=== PATIENT | male | born 1945 | race Caucasian/White ===

== ENCOUNTER 2016-05-23 08:45 | Emergency (ER) | payer OTHER ==
[~2016-05-23] VITALS: Ht 175.3 cm; Wt 114.2 kg
[~2016-05-23 08:45] MED LIST: ALLEGRA-D 241 TABLET PO; AMLODIPINE BESYL5 MG PO; APRESOLINE10 MG PO; ASPIR 8181 MG PO; ASPIRIN325 MG PO; CELEXA40 MG PO; CIPROFLOXACIN500 M1 PO; CLONIDINE HCL0.1 MG PO; COMPAZINE10 MG PO; COMPAZINE5 MG PO; DESYREL100 MG PO; DIOVAN320 MG PO; DIOVAN40 MG PO; DOXYCYCLINE HY100 MG PO; ECOTRIN325 MG PO; FENOFIBRATE145 M1 PO; FLONASE16 G1 BOTH NARES; HYDROCHLOROTHIA25 MG PO; K-DUR10 MEQ PO; KLONOPIN0.5 M1 PO; KLOR-CON M2020 MEQ PO; LEVAQUIN500 MG PO; LEXAPRO10 MG PO; LIPITOR40 MG PO; LOPRESSOR25 MG PO; LOPRESSOR50 MG PO; METOPROLOL TART50 MG PO; METRONIDAZOLE500 MG PO; NAPROSYN500 MG PO; NIACIN500 MG PO; NON-DROWSY ALLE10 MG PO; NORCO 5/3251 TABLET PO; NORVASC10 MG PO; NORVASC5 MG PO; TOPROL XL100 MG PO; TOPROL XL50 MG PO; TRAMADOL HCL50 MG PO; TRAZODONE HCL50 MG PO; TRICOR48 MG PO; TYLENOL EXTRA500 M1 PO; ULTRAM50 MG PO; VIAGRA100 MG PO; VICODIN 5-3001 EACH PO; VITAMIN B122500 MCG PO; XANAX1 MG PO; ZOCOR20 MG PO; ZOCOR5 MG PO; ZOLOFT100 MG PO; [UNRECOGNIZED DRUG - REMARK]
[2016-05-23 09:39] LABS: EOSINOPHIL COUNT 0.1 K/uL (0-0.3); HEMATOCRIT 44.2 % (38.0-50.0); IMMATURE GRANULOCYTE (%) 0.9 % (0.0-0.7); IMMATURE GRANULOCYTE COUNT 0.1 K/uL; LYMPHOCYTE COUNT 1.7 K/uL (1.0-2.8); MCH 30.8 PG (29.0-34.0); MCHC 36.9 G/DL (30.0-36.0); MCV 83.6 FL (86-99); MEAN PLAT.VOLUME 10.1 uM^3 (9.0-12.4); MONOCYTE (%) 8.3 % (3-12); MONOCYTE COUNT 0.9 K/uL (0-0.8); NEUTROPHIL (%) 73.4 % (45-76); NEUTROPHIL COUNT 7.6 K/uL (1.8-6.4); PLATELET COUNT 251 K/uL (156-360); RBC DIS.WIDTH-CV 13.3 % (11.8-14.6); RED BLOOD COUNT 5.29 M/uL (4.00-5.50); WHITE BLOOD COUNT 10.4 K/uL (4.1-10.2)
[2016-05-23 09:40] LABS: INTER. NORMALIZED RATIO 1.1; PROTHROMBIN TIME 11.4 (9.2-11.2); PTT 20.3 (25-32)
[2016-05-23 09:50] LABS: ANION GAP 13 MEQ/L (2-14); CHLORIDE 93 mEq/L (99-109); GFR ESTIMATE (CALCULATED) > 59 mL/min/; GLUCOSE 120 mg/dL (70-99); POTASSIUM 3.4 mEq/L (3.7-5.4); SODIUM 129 mEq/L (136-147)
[2016-05-23 09:54] LABS: TROP-I INTERPRETATION NEGATIVE; TROPONIN-I < 0.01 ng/mL (0.0-0.30)
[2016-05-23 09:58] LABS: UREA NITROGEN (BUN) 13 mg/dL (9-23)
[2016-05-23] MEDS ORDERED: CATAPRES0.1 MG PO (11:52)
[2016-05-23] MEDS ORDERED: PREDNISONE50 MG PO (11:52)
[2016-05-23 12:06] VITALS: BP 177/62
== END 2016-05-23 12:07 | disposition home or self-care (01) ==
LOC: EME → EDBD 08:45 → EME 12:07
PROVIDERS: Emergency Medicine
DX: J44.1 Chronic obstructive pulmonary disease with (acute) exacerbation (principal); I10 Essential (primary) hypertension; E78.5 Hyperlipidemia, unspecified; Z95.5 Presence of coronary angioplasty implant and graft; Z87.891 Personal history of nicotine dependence; Z79.82 Long term (current) use of aspirin
CPT/HCPCS: 71010; 80048; 83880; 84484; 85025; 85610; 85730; 93005; 94640; 99281; 99284

== ENCOUNTER 2016-08-15 16:10 | Observation (INO) | payer OTHER ==
[~2016-08-15] VITALS: Ht 177.8 cm; Wt 113.4 kg
[~2016-08-15 16:10] MED LIST changes: +CATAPRES0.1 MG PO; +PREDNISONE50 MG PO
[2016-08-15 16:45] LABS: HEMATOCRIT 42.7 % (38.0-50.0); MCH 29.8 PG (29.0-34.0); MCHC 34.4 G/DL (30.0-36.0); MCV 86.4 FL (86-99); MEAN PLAT.VOLUME 9.4 uM^3 (9.0-12.4); PLATELET COUNT 250 K/uL (156-360); RBC DIS.WIDTH-CV 13.8 % (11.8-14.6); RBC DIS.WIDTH-SD 43.8 % (39-53); RED BLOOD COUNT 4.94 M/uL (4.00-5.50); WHITE BLOOD COUNT 7.7 K/uL (4.1-10.2)
[2016-08-15 16:56] LABS: CHLORIDE 101 mEq/L (99-109); POTASSIUM 3.9 mEq/L (3.7-5.4); SODIUM 135 mEq/L (136-147)
[2016-08-15 16:58] LABS: GLUCOSE 108 mg/dL (70-99)
[2016-08-15 16:59] LABS: ANION GAP 11 MEQ/L (2-14)
[2016-08-15 17:02] LABS: GFR ESTIMATE (CALCULATED) > 59 mL/min/
[2016-08-15 17:03] LABS: UREA NITROGEN (BUN) 13 mg/dL (9-23)
[2016-08-15 17:09] LABS: TROP-I INTERPRETATION NEGATIVE; TROPONIN-I < 0.01 ng/mL (0.0-0.30)
[2016-08-15] MEDS ORDERED: HYDROCHLOROTHIA25 MG PO (18:22)
[2016-08-15] MEDS ORDERED: CLONAZEPAM0.5 MG PO (18:23)
[2016-08-15] MEDS ORDERED: DICYCLOMINE HCL20 MG PO (18:24)
[2016-08-15] MEDS ORDERED: OMEPRAZOLE20 MG PO (18:24)
[2016-08-15] MEDS ORDERED: VIAGRA100 MG PO (18:25)
[2016-08-15 19:46] VITALS: BP 172/77
[2016-08-15 23:53] LABS: TROP-I INTERPRETATION NEGATIVE; TROPONIN-I < 0.01 ng/mL (0.0-0.30)
[2016-08-16] VITALS (8 sets, daily range): BP systolic 137–193; BP diastolic 65–100
[2016-08-16 05:38] LABS: MCH 29.5 PG (29.0-34.0); MCHC 33.8 G/DL (30.0-36.0); MCV 87.2 FL (86-99); MEAN PLAT.VOLUME 9.8 uM^3 (9.0-12.4); PLATELET COUNT 215 K/uL (156-360); RBC DIS.WIDTH-CV 13.8 % (11.8-14.6); RBC DIS.WIDTH-SD 44.1 % (39-53); RED BLOOD COUNT 4.47 M/uL (4.00-5.50); WHITE BLOOD COUNT 7.5 K/uL (4.1-10.2)
[2016-08-16 05:53] LABS: TROP-I INTERPRETATION NEGATIVE; TROPONIN-I 0.01 ng/mL (0.0-0.30)
[2016-08-16 06:04] LABS: ALKALINE PHOSPHATASE 50 IU/L (3-129); ANION GAP 8 MEQ/L (2-14); CHLORIDE 100 MEQ/L (99-109); GFR ESTIMATE (CALCULATED) > 59 mL/min/; GLUCOSE 91 mg/dL (70-99); POTASSIUM 3.2 MEQ/L (3.7-5.4); SAMPLE HEMOLYSIS CHECK 0; SAMPLE ICTERIC CHECK 0; SAMPLE LIPEMIA CHECK 0; SODIUM 137 MEQ/L (136-147); TOTAL BILIRUBIN 0.9 MG/DL (0.0-1.0); UREA NITROGEN (BUN) 15 mg/dL (9-23)
[2016-08-16 11:50] LABS: D-DIMER ELISA 0.24 mg/L FEU (< 0.57)
[2016-08-16] MEDS ORDERED: CLONIDINE1 EAC1 TD (14:10)
[2016-08-16] MEDS ORDERED: APRESOLINE50 MG PO (14:10)
[2016-08-16] MEDS ORDERED: K-DUR20 MEQ PO (14:12)
[2016-08-16] MEDS ORDERED: TRIAMTERENE-HC1 EACH PO (14:20)
[2016-08-17 04:55] VITALS: BP 128/61
[2016-08-17 06:40] LABS: ANION GAP 8 MEQ/L (2-14); CHLORIDE 99 MEQ/L (99-109); GFR ESTIMATE (CALCULATED) 53 mL/min/; GLUCOSE 100 mg/dL (70-99); SAMPLE HEMOLYSIS CHECK 0; SAMPLE ICTERIC CHECK 0; SAMPLE LIPEMIA CHECK 0; SODIUM 134 MEQ/L (136-147); UREA NITROGEN (BUN) 20 mg/dL (9-23)
[2016-08-17 06:42] LABS: POTASSIUM 4.1 MEQ/L (3.7-5.4)
[2016-08-17 07:15] VITALS: BP 142/64
== END 2016-08-17 11:28 | disposition home or self-care (01) ==
LOC: EME 16:10 → 5WEST 18:07 → EDOF 18:07 → 5WEST 19:24
PROVIDERS: Internal Medicine; Nurse Practitioner Adult Health
DX: R07.89 Other chest pain (principal); E87.6 Hypokalemia; I25.10 Atherosclerotic heart disease of native coronary artery without angina pectoris; I10 Essential (primary) hypertension; E78.00 Pure hypercholesterolemia, unspecified; J44.9 Chronic obstructive pulmonary disease, unspecified; G47.30 Sleep apnea, unspecified; K21.9 Gastro-esophageal reflux disease without esophagitis; F32.9 Major depressive disorder, single episode, unspecified; E66.9 Obesity, unspecified; Z68.35 Body mass index [BMI] 35.0-35.9, adult; I51.7 Cardiomegaly
CPT/HCPCS: 71020; 80048; 80053; 84484; 85027; 85379; 93005; 94660; 99281; 99285; G0378; J1644

== ENCOUNTER 2016-08-20 00:17 | Observation (INO) | payer OTHER ==
[~2016-08-20] VITALS: Ht 177.8 cm; Wt 119.5 kg
[~2016-08-20 00:17] MED LIST changes: +APRESOLINE50 MG PO; +CLONAZEPAM0.5 MG PO; +CLONIDINE1 EAC1 TD; +DICYCLOMINE HCL20 MG PO; +K-DUR20 MEQ PO; +OMEPRAZOLE20 MG PO; +TRIAMTERENE-HC1 EACH PO
[2016-08-20 00:56] LABS: HEMATOCRIT 40.7 % (38.0-50.0); MCH 30.1 PG (29.0-34.0); MCHC 34.6 G/DL (30.0-36.0); MCV 86.8 FL (86-99); MEAN PLAT.VOLUME 9.4 uM^3 (9.0-12.4); PLATELET COUNT 231 K/uL (156-360); RBC DIS.WIDTH-CV 13.6 % (11.8-14.6); RBC DIS.WIDTH-SD 43.1 % (39-53); RED BLOOD COUNT 4.69 M/uL (4.00-5.50)
[2016-08-20 01:08] LABS: CHLORIDE 100 mEq/L (99-109); POTASSIUM 3.6 mEq/L (3.7-5.4); SODIUM 130 mEq/L (136-147)
[2016-08-20 01:10] LABS: GLUCOSE 126 mg/dL (70-99)
[2016-08-20 01:11] LABS: ANION GAP 7 MEQ/L (2-14)
[2016-08-20 01:14] LABS: GFR ESTIMATE (CALCULATED) > 59 mL/min/
[2016-08-20 01:15] LABS: UREA NITROGEN (BUN) 20 mg/dL (9-23)
[2016-08-20 01:23] LABS: TROP-I INTERPRETATION NEGATIVE; TROPONIN-I < 0.01 ng/mL (0.0-0.30)
[2016-08-20 04:40] LABS: TOTAL BILIRUBIN 0.6 mg/dL (0.0-1.0)
[2016-08-20 04:41] LABS: ALKALINE PHOSPHATASE 92 IU/L (3-129)
[2016-08-20 04:44] LABS: DIRECT BILIRUBIN 0.2 mg/dL (0.0-0.3)
[2016-08-20 04:45] LABS: LIPASE 49 U/L (1.0-51.0)
[2016-08-20 05:02] VITALS: BP 159/72
[2016-08-20 07:30] VITALS: BP 143/66
[2016-08-20 09:10] LABS: TROP-I INTERPRETATION NEGATIVE; TROPONIN-I < 0.01 ng/mL (0.0-0.30)
[2016-08-20 11:32] VITALS: BP 149/65
[2016-08-20 13:09] LABS: TROP-I INTERPRETATION NEGATIVE; TROPONIN-I < 0.01 ng/mL (0.0-0.30)
[2016-08-20 16:58] VITALS: BP 166/71
[2016-08-20 19:42] VITALS: BP 171/75
[2016-08-21] VITALS: BP 125/60
[2016-08-21 07:15] VITALS: BP 132/68
[2016-08-21] MEDS ORDERED: HYDRALAZINE HC100 MG PO (10:28)
[2016-08-21] MEDS ORDERED: METOPROLOL TART50 MG PO (10:28)
[2016-08-21] MEDS ORDERED: CLONIDINE1 EAC2 TD (10:43)
== END 2016-08-21 11:35 | disposition home or self-care (01) ==
LOC: EME 00:17 → 5WEST 03:54 → EDOF 03:54 → 5WEST 04:49
PROVIDERS: Hospitalist
DX: R07.89 Other chest pain (principal); I16.0 Hypertensive urgency; I10 Essential (primary) hypertension; I35.0 Nonrheumatic aortic (valve) stenosis; E87.6 Hypokalemia; E87.1 Hypo-osmolality and hyponatremia; I25.10 Atherosclerotic heart disease of native coronary artery without angina pectoris; E78.5 Hyperlipidemia, unspecified; J44.9 Chronic obstructive pulmonary disease, unspecified; J45.909 Unspecified asthma, uncomplicated; G43.909 Migraine, unspecified, not intractable, without status migrainosus; K21.9 Gastro-esophageal reflux disease without esophagitis; Z87.891 Personal history of nicotine dependence; Z95.5 Presence of coronary angioplasty implant and graft; G47.30 Sleep apnea, unspecified; F41.9 Anxiety disorder, unspecified; F32.9 Major depressive disorder, single episode, unspecified; E66.9 Obesity, unspecified; Z68.37 Body mass index [BMI] 37.0-37.9, adult
CPT/HCPCS: 71020; 76705; 80048; 80076; 81003; 82436; 83690; 83930; 83935; 84133; 84300; 84443; 84484; 85027; 93005; 93306; 99281; 99285; G0378; J1644

== ENCOUNTER 2016-09-03 11:40 | Emergency (ER) | payer OTHER ==
[~2016-09-03] VITALS: Ht 177.8 cm; Wt 120.7 kg
[~2016-09-03 11:40] MED LIST changes: +CLONIDINE1 EAC2 TD; +HYDRALAZINE HC100 MG PO
[2016-09-03 12:21] LABS: EOSINOPHIL (%) 1.2 % (0-5); EOSINOPHIL COUNT 0.1 K/uL (0-0.3); HEMATOCRIT 37.5 % (38.0-50.0); IMMATURE GRANULOCYTE (%) 0.9 % (0.0-0.7); IMMATURE GRANULOCYTE COUNT 0.1 K/uL; INSTRUMENT ABS NEUTROPHIL CT 6.1 K/uL; LYMPHOCYTE COUNT 0.8 K/uL (1.0-2.8); MCH 30.4 PG (29.0-34.0); MCHC 34.7 G/DL (30.0-36.0); MCV 87.6 FL (86-99); MEAN PLAT.VOLUME 9.1 uM^3 (9.0-12.4); MONOCYTE (%) 7.8 % (3-12); MONOCYTE COUNT 0.6 K/uL (0-0.8); NEUTROPHIL (%) 79.5 % (45-76); NEUTROPHIL COUNT 6.1 K/uL (1.8-6.4); PLATELET COUNT 206 K/uL (156-360); RBC DIS.WIDTH-CV 13.5 % (11.8-14.6); RBC DIS.WIDTH-SD 43.3 % (39-53); RED BLOOD COUNT 4.28 M/uL (4.00-5.50); WHITE BLOOD COUNT 7.6 K/uL (4.1-10.2)
[2016-09-03 12:31] LABS: CHLORIDE 96 mEq/L (99-109); POTASSIUM 4.1 mEq/L (3.7-5.4); SODIUM 127 mEq/L (136-147)
[2016-09-03 12:33] LABS: GLUCOSE 98 mg/dL (70-99)
[2016-09-03 12:35] LABS: ANION GAP 11 MEQ/L (2-14)
[2016-09-03 12:37] LABS: GFR ESTIMATE (CALCULATED) 43 mL/min/
[2016-09-03 12:38] LABS: UREA NITROGEN (BUN) 25 mg/dL (9-23)
[2016-09-03 12:42] LABS: TROP-I INTERPRETATION NEGATIVE; TROPONIN-I < 0.01 ng/mL (0.0-0.30)
[2016-09-03] MEDS ORDERED: CATAPRES-TTS 31 EACH TD (13:57)
[2016-09-03 14:36] VITALS: BP 159/75
== END 2016-09-03 14:37 | disposition home or self-care (01) ==
LOC: EME 11:40
PROVIDERS: Physician Assistant
DX: R06.02 Shortness of breath (principal); Z76.0 Encounter for issue of repeat prescription; J44.9 Chronic obstructive pulmonary disease, unspecified; E78.5 Hyperlipidemia, unspecified; I10 Essential (primary) hypertension; K21.9 Gastro-esophageal reflux disease without esophagitis; Z87.891 Personal history of nicotine dependence; Z79.82 Long term (current) use of aspirin; Z98.61 Coronary angioplasty status
CPT/HCPCS: 71010; 80048; 84484; 85025; 93005; 99281; 99284

== ENCOUNTER 2016-09-06 15:51 | Inpatient (IN) | payer OTHER ==
[~2016-09-06] VITALS: Ht 177.8 cm; Wt 119.3 kg
[~2016-09-06 15:51] MED LIST changes: +CATAPRES-TTS 31 EACH TD
[2016-09-06 16:38] LABS: HEMATOCRIT 38.5 % (38.0-50.0); MCH 29.6 PG (29.0-34.0); MCV 87.1 FL (86-99); MEAN PLAT.VOLUME 9.5 uM^3 (9.0-12.4); PLATELET COUNT 217 K/uL (156-360); RBC DIS.WIDTH-CV 13.3 % (11.8-14.6); RBC DIS.WIDTH-SD 42.8 % (39-53); RED BLOOD COUNT 4.42 M/uL (4.00-5.50); WHITE BLOOD COUNT 9.5 K/uL (4.1-10.2)
[2016-09-06 16:58] LABS: CHLORIDE 97 mEq/L (99-109); POTASSIUM 4.7 mEq/L (3.7-5.4); SODIUM 126 mEq/L (136-147)
[2016-09-06 16:59] LABS: GLUCOSE 94 mg/dL (70-99)
[2016-09-06 17:01] LABS: ANION GAP 12 MEQ/L (2-14)
[2016-09-06 17:03] LABS: GFR ESTIMATE (CALCULATED) 37 mL/min/
[2016-09-06 17:04] LABS: UREA NITROGEN (BUN) 23 mg/dL (9-23)
[2016-09-06 17:06] LABS: TROP-I INTERPRETATION NEGATIVE; TROPONIN-I < 0.01 ng/mL (0.0-0.30)
[2016-09-06 17:54] LABS: INTER. NORMALIZED RATIO 1.1; PROTHROMBIN TIME 10.9 (9.2-11.2); PTT 29.4 (25-32)
[2016-09-06] MEDS ORDERED: CLONIDINE1 EAC1 TD (19:19)
[2016-09-06] MEDS ORDERED: TRIAMTERENE-HC1 EACH PO (19:20)
[2016-09-06] MEDS ORDERED: APRESOLINE50 MG PO (19:20)
[2016-09-06 20:20] LABS: MAGNESIUM 1.8 mg/dL (1.3-2.7)
[2016-09-06 20:24] LABS: TOTAL BILIRUBIN 0.9 mg/dL (0.0-1.0)
[2016-09-06 20:25] LABS: ALKALINE PHOSPHATASE 62 IU/L (3-129)
[2016-09-06 20:27] LABS: DIRECT BILIRUBIN 0.3 mg/dL (0.0-0.3)
[2016-09-06 20:28] LABS: URIC ACID 6.1 mg/dL (3.1-9.2)
[2016-09-06 20:29] LABS: LIPASE 40 U/L (1.0-51.0)
[2016-09-06 21:34] VITALS: BP 145/65
[2016-09-06 22:00] LABS: ADD MIUA? NO; BILIRUBIN NEGATIVE; BLOOD NEGATIVE; COLOR YELLOW ((YELLOW)); GLUCOSE (STRIP) NEGATIVE; KETONES NEGATIVE; LEUKOCYTES NEGATIVE; NITRITE NEGATIVE; PROTEIN (STRIP) NEGATIVE; UROBILINOGEN 0.2 MG/DL (0.2-1.0)
[2016-09-07 03:00] VITALS: BP 104/48
[2016-09-07 04:32] LABS: HEMATOCRIT 36.4 % (38.0-50.0); MCH 29.7 PG (29.0-34.0); MCHC 34.1 G/DL (30.0-36.0); MCV 87.3 FL (86-99); MEAN PLAT.VOLUME 9.2 uM^3 (9.0-12.4); PLATELET COUNT 181 K/uL (156-360); RBC DIS.WIDTH-CV 13.2 % (11.8-14.6); RBC DIS.WIDTH-SD 42.6 % (39-53); RED BLOOD COUNT 4.17 M/uL (4.00-5.50); WHITE BLOOD COUNT 8.3 K/uL (4.1-10.2)
[2016-09-07 04:43] LABS: CHLORIDE 100 mEq/L (99-109); POTASSIUM 4.9 mEq/L (3.7-5.4); SODIUM 126 mEq/L (136-147)
[2016-09-07 04:45] LABS: GLUCOSE 95 mg/dL (70-99)
[2016-09-07 04:46] LABS: ANION GAP 10 MEQ/L (2-14)
[2016-09-07 04:48] LABS: GFR ESTIMATE (CALCULATED) 37 mL/min/
[2016-09-07 04:49] LABS: UREA NITROGEN (BUN) 26 mg/dL (9-23)
[2016-09-07 04:53] LABS: TROP-I INTERPRETATION NEGATIVE; TROPONIN-I < 0.01 ng/mL (0.0-0.30)
[2016-09-07 08:01] VITALS: BP 184/72
[2016-09-07 09:41] LABS: CHLORIDE 98 mEq/L (99-109); POTASSIUM 5.5 mEq/L (3.7-5.4); SODIUM 128 mEq/L (136-147)
[2016-09-07 09:43] LABS: GLUCOSE 102 mg/dL (70-99)
[2016-09-07 09:44] LABS: ANION GAP 11 MEQ/L (2-14)
[2016-09-07 09:47] LABS: GFR ESTIMATE (CALCULATED) 43 mL/min/
[2016-09-07 09:48] LABS: UREA NITROGEN (BUN) 25 mg/dL (9-23)
[2016-09-07 11:07] LABS: TROP-I INTERPRETATION NEGATIVE; TROPONIN-I < 0.01 ng/mL (0.0-0.30)
[2016-09-07 11:17] VITALS: BP 123/73
[2016-09-07 16:04] VITALS: BP 116/56
[2016-09-07 17:07] LABS: CHLORIDE 101 mEq/L (99-109); SODIUM 129 mEq/L (136-147)
[2016-09-07 17:09] LABS: GLUCOSE 100 mg/dL (70-99)
[2016-09-07 17:10] LABS: ANION GAP 12 MEQ/L (2-14)
[2016-09-07 17:13] LABS: GFR ESTIMATE (CALCULATED) 46 mL/min/
[2016-09-07 17:14] LABS: UREA NITROGEN (BUN) 22 mg/dL (9-23)
[2016-09-07 19:56] VITALS: BP 171/70
[2016-09-07 21:17] LABS: UR CREATININE CONCENTRATION 35.6 MG/DL
[2016-09-07 23:49] VITALS: BP 135/63
[2016-09-08 03:41] VITALS: BP 144/63
[2016-09-08 07:20] LABS: CARBON DIOXIDE (BICARBONATE) 24.6 MEQ/L (20-31)
[2016-09-08 07:53] VITALS: BP 154/66
[2016-09-08 08:50] LABS: ANION GAP 5 MEQ/L (2-14); CHLORIDE 103 MEQ/L (99-109); GFR ESTIMATE (CALCULATED) 58 mL/min/; GLUCOSE 97 mg/dL (70-99); SAMPLE HEMOLYSIS CHECK 0; SAMPLE ICTERIC CHECK 0; SAMPLE LIPEMIA CHECK 0; SODIUM 130 MEQ/L (136-147); UREA NITROGEN (BUN) 18 mg/dL (9-23); URIC ACID 4.1 mg/dL (3.1-9.2)
[2016-09-08 09:05] LABS: POTASSIUM 6.1 MEQ/L (3.7-5.4)
[2016-09-08 16:04] VITALS: BP 176/76
[2016-09-08 17:14] LABS: CHLORIDE 104 mEq/L (99-109); SODIUM 132 mEq/L (136-147)
[2016-09-08 17:15] LABS: GLUCOSE 110 mg/dL (70-99)
[2016-09-08 17:17] LABS: ANION GAP 11 MEQ/L (2-14)
[2016-09-08 17:19] LABS: GFR ESTIMATE (CALCULATED) 58 mL/min/; POTASSIUM 4.5 mEq/L (3.7-5.4)
[2016-09-08 17:20] LABS: UREA NITROGEN (BUN) 17 mg/dL (9-23)
[2016-09-08 20:26] VITALS: BP 176/82
[2016-09-09 00:11] VITALS: BP 128/60
[2016-09-09 04:43] VITALS: BP 141/58
[2016-09-09 07:17] VITALS: BP 188/79
[2016-09-09 07:42] LABS: EOSINOPHIL (%) 1.5 % (0-5); EOSINOPHIL COUNT 0.1 K/uL (0-0.3); HEMATOCRIT 35.3 % (38.0-50.0); IMMATURE GRANULOCYTE COUNT 0.1 K/uL; INSTRUMENT ABS NEUTROPHIL CT 4.2 K/uL; LYMPHOCYTE COUNT 1.2 K/uL (1.0-2.8); MCH 29.9 PG (29.0-34.0); MCHC 33.4 G/DL (30.0-36.0); MCV 89.6 FL (86-99); MEAN PLAT.VOLUME 9.3 uM^3 (9.0-12.4); MONOCYTE (%) 8.2 % (3-12); MONOCYTE COUNT 0.5 K/uL (0-0.8); NEUTROPHIL (%) 69.1 % (45-76); NEUTROPHIL COUNT 4.2 K/uL (1.8-6.4); PLATELET COUNT 186 K/uL (156-360); RBC DIS.WIDTH-CV 13.4 % (11.8-14.6); RBC DIS.WIDTH-SD 44.4 % (39-53); RED BLOOD COUNT 3.94 M/uL (4.00-5.50)
[2016-09-09 08:40] LABS: ANION GAP 9 MEQ/L (2-14); CHLORIDE 103 MEQ/L (99-109); GFR ESTIMATE (CALCULATED) 58 mL/min/; GLUCOSE 90 mg/dL (70-99); POTASSIUM 4.3 MEQ/L (3.7-5.4); SAMPLE HEMOLYSIS CHECK 0; SAMPLE ICTERIC CHECK 0; SAMPLE LIPEMIA CHECK 0; SODIUM 133 MEQ/L (136-147); UREA NITROGEN (BUN) 14 mg/dL (9-23)
[2016-09-09 11:15] VITALS: BP 198/81
[2016-09-09] MEDS ORDERED: TAMSULOSIN HCL0.4 MG PO (15:57)
[2016-09-09 16:00] VITALS: BP 122/60
[2016-09-09] MEDS ORDERED: ADVAIR HFA120 INHALA IH (16:06)
[2016-09-09] MEDS ORDERED: VENTOLIN HFA18 GM IH (16:07)
== END 2016-09-09 17:24 | disposition home or self-care (01) | DRG 683 ==
LOC: EME 15:51 → EDOF 19:52 → 5WEST 19:52 → 3EAST 09-07 12:51 → 5WEST 09-07 12:51 → 3EAST 09-07 17:07
PROVIDERS: Emergency Medicine; Hospitalist; Internal Medicine; Internal Medicine Nephrology; Physician Assistant
DX: N17.9 Acute kidney failure, unspecified (principal); R07.9 Chest pain, unspecified; E78.5 Hyperlipidemia, unspecified; J44.9 Chronic obstructive pulmonary disease, unspecified; E66.9 Obesity, unspecified; Z68.37 Body mass index [BMI] 37.0-37.9, adult; K21.9 Gastro-esophageal reflux disease without esophagitis; F32.9 Major depressive disorder, single episode, unspecified; I25.10 Atherosclerotic heart disease of native coronary artery without angina pectoris; Z95.5 Presence of coronary angioplasty implant and graft; E87.1 Hypo-osmolality and hyponatremia; G47.33 Obstructive sleep apnea (adult) (pediatric); R16.0 Hepatomegaly, not elsewhere classified; N28.89 Other specified disorders of kidney and ureter; J44.1 Chronic obstructive pulmonary disease with (acute) exacerbation; K59.00 Constipation, unspecified; E87.5 Hyperkalemia; E87.2 Acidosis; Z87.891 Personal history of nicotine dependence; R15.9 Full incontinence of feces; R33.9 Retention of urine, unspecified; N18.2 Chronic kidney disease, stage 2 (mild); I47.1 Supraventricular tachycardia; H40.9 Unspecified glaucoma; E87.8 Other disorders of electrolyte and fluid balance, not elsewhere classified; I13.10 Hypertensive heart and chronic kidney disease without heart failure, with stage 1 through stage 4 chronic kidney disease, or unspecified chronic kidney disease; E04.9 Nontoxic goiter, unspecified; I70.1 Atherosclerosis of renal artery; N40.0 Benign prostatic hyperplasia without lower urinary tract symptoms
CPT/HCPCS: 71020; 71250; 74176; 76770; 78452; 80048; 80048 91; 80069; 80076; 81003; 82436; 82570; 82803; 83690; 83735; 83880; 83930; 83935; 84133; 84156; 84300; 84443; 84484; 84550; 85025; 85027; 85379; 85610; 85730; 93005; 93017; 93975; 94640; 94640 76; 94660; 94799; 99202; 99281; 99285; A9500; G0378; J1644; J1815; J2270; J2785; J7030

== ENCOUNTER 2016-09-10 20:18 | Inpatient (IN) | payer OTHER ==
[~2016-09-10] VITALS: Ht 177.8 cm; Wt 117.8 kg
[~2016-09-10 20:18] MED LIST changes: +ADVAIR HFA120 INHALA IH; +TAMSULOSIN HCL0.4 MG PO; +VENTOLIN HFA18 GM IH
[2016-09-10 22:44] LABS: CHLORIDE 102 mEq/L (99-109); POTASSIUM 3.7 mEq/L (3.7-5.4); SODIUM 130 mEq/L (136-147)
[2016-09-10 22:46] LABS: GLUCOSE 95 mg/dL (70-99)
[2016-09-10 22:47] LABS: ANION GAP 11 MEQ/L (2-14)
[2016-09-10 22:48] LABS: TOTAL BILIRUBIN 0.9 mg/dL (0.0-1.0)
[2016-09-10 22:49] LABS: ALKALINE PHOSPHATASE 59 IU/L (3-129)
[2016-09-10 22:50] LABS: GFR ESTIMATE (CALCULATED) > 59 mL/min/
[2016-09-10 22:51] LABS: UREA NITROGEN (BUN) 11 mg/dL (9-23)
[2016-09-10 22:54] LABS: TROP-I INTERPRETATION NEGATIVE; TROPONIN-I < 0.01 ng/mL (0.0-0.30)
[2016-09-10 23:32] LABS: HEMATOCRIT 36.5 % (38.0-50.0); MCH 29.9 PG (29.0-34.0); MCHC 34.5 G/DL (30.0-36.0); MCV 86.7 FL (86-99); MEAN PLAT.VOLUME 9.2 uM^3 (9.0-12.4); PLATELET COUNT 193 K/uL (156-360); RBC DIS.WIDTH-CV 12.8 % (11.8-14.6); RBC DIS.WIDTH-SD 40.7 % (39-53); RED BLOOD COUNT 4.21 M/uL (4.00-5.50)
[2016-09-10 23:35] LABS: WHITE BLOOD COUNT 8.9 K/uL (4.1-10.2)
[2016-09-11] VITALS (9 sets, daily range): BP systolic 148–174; BP diastolic 52–68
[2016-09-11 02:47] LABS: INTER. NORMALIZED RATIO 1.1; PROTHROMBIN TIME 11.2 (9.2-11.2); PTT 27.8 (25-32)
[2016-09-11 05:58] LABS: HEMATOCRIT 32.4 % (38.0-50.0); MCH 29.8 PG (29.0-34.0); MCV 87.8 FL (86-99); MEAN PLAT.VOLUME 9.3 uM^3 (9.0-12.4); PLATELET COUNT 185 K/uL (156-360); RBC DIS.WIDTH-CV 12.8 % (11.8-14.6); RBC DIS.WIDTH-SD 40.9 % (39-53); RED BLOOD COUNT 3.69 M/uL (4.00-5.50); WHITE BLOOD COUNT 8.3 K/uL (4.1-10.2)
[2016-09-11 06:23] LABS: TROP-I INTERPRETATION NEGATIVE; TROPONIN-I < 0.01 ng/mL (0.0-0.30)
[2016-09-11 07:16] LABS: ANION GAP 10 MEQ/L (2-14); CHLORIDE 100 MEQ/L (99-109); GFR ESTIMATE (CALCULATED) 58 mL/min/; GLUCOSE 97 mg/dL (70-99); POTASSIUM 3.3 MEQ/L (3.7-5.4); SAMPLE HEMOLYSIS CHECK 0; SAMPLE ICTERIC CHECK 0; SAMPLE LIPEMIA CHECK 0; SODIUM 132 MEQ/L (136-147); UREA NITROGEN (BUN) 13 mg/dL (9-23)
[2016-09-11 13:26] LABS: TROP-I INTERPRETATION NEGATIVE; TROPONIN-I < 0.01 ng/mL (0.0-0.30)
[2016-09-11 18:19] LABS: INTER. NORMALIZED RATIO 1.1; PROTHROMBIN TIME 11.3 (9.2-11.2)
[2016-09-12 01:04] LABS: INTER. NORMALIZED RATIO 1.1; PROTHROMBIN TIME 11.2 (9.2-11.2); PTT 67.5 (25-32)
[2016-09-12 04:55] VITALS: BP 156/72
[2016-09-12 07:45] LABS: HEMATOCRIT 35.6 % (38.0-50.0); MCHC 33.7 G/DL (30.0-36.0); MEAN PLAT.VOLUME 9.2 uM^3 (9.0-12.4); PLATELET COUNT 186 K/uL (156-360); RBC DIS.WIDTH-CV 13.2 % (11.8-14.6); WHITE BLOOD COUNT 6.1 K/uL (4.1-10.2)
[2016-09-12 08:00] VITALS: BP 196/81
[2016-09-12 08:22] LABS: ANION GAP 7 MEQ/L (2-14); CHLORIDE 105 MEQ/L (99-109); GFR ESTIMATE (CALCULATED) 58 mL/min/; GLUCOSE 98 mg/dL (70-99); MAGNESIUM 1.9 mg/dl (1.3-2.7); SAMPLE HEMOLYSIS CHECK 0; SAMPLE ICTERIC CHECK 0; SAMPLE LIPEMIA CHECK 0; SODIUM 135 MEQ/L (136-147); UREA NITROGEN (BUN) 10 mg/dL (9-23)
[2016-09-12 08:23] LABS: POTASSIUM 4.5 MEQ/L (3.7-5.4)
[2016-09-12 10:07] VITALS: BP 187/80
[2016-09-12 17:57] VITALS: BP 175/72
[2016-09-12 19:10] VITALS: BP 141/63
[2016-09-13 00:11] VITALS: BP 126/57
[2016-09-13 04:53] VITALS: BP 160/66
[2016-09-13 05:22] LABS: HEMATOCRIT 33.2 % (38.0-50.0); MCHC 34.3 G/DL (30.0-36.0); MCV 90.2 FL (86-99); MEAN PLAT.VOLUME 9.1 uM^3 (9.0-12.4); PLATELET COUNT 184 K/uL (156-360); RBC DIS.WIDTH-CV 13.3 % (11.8-14.6); RBC DIS.WIDTH-SD 43.9 % (39-53); RED BLOOD COUNT 3.68 M/uL (4.00-5.50); WHITE BLOOD COUNT 7.9 K/uL (4.1-10.2)
[2016-09-13 09:00] VITALS: BP 137/58
[2016-09-13 11:16] LABS: ANION GAP 9 MEQ/L (2-14); CHLORIDE 103 MEQ/L (99-109); GFR ESTIMATE (CALCULATED) > 59 mL/min/; GLUCOSE 106 mg/dL (70-99); POTASSIUM 4.2 MEQ/L (3.7-5.4); SAMPLE HEMOLYSIS CHECK 1; SAMPLE ICTERIC CHECK 0; SAMPLE LIPEMIA CHECK 0; SODIUM 132 MEQ/L (136-147); UREA NITROGEN (BUN) 9 mg/dL (9-23)
[2016-09-13 13:01] VITALS: BP 149/65
[2016-09-13] MEDS ORDERED: RANEXA500 MG PO (15:27)
[2016-09-13] MEDS ORDERED: HYDRALAZINE HCL25 MG PO ×2 (15:29→16:42)
[2016-09-13] MEDS ORDERED: IMDUR30 MG PO (16:41)
[2016-09-13] MEDS ORDERED: LIPITOR40 MG PO (16:41)
[2016-09-13 17:48] VITALS: BP 190/77
== END 2016-09-13 17:35 | disposition home health service (06) | DRG 286 ==
LOC: EME → EDBD 20:18 → EME 20:18 → EDOF 09-11 01:44 → 4EAST 09-11 01:44
PROVIDERS: Emergency Medicine; Hospitalist; Internal Medicine; Internal Medicine Cardiovascular Disease
DX: T82.855A Stenosis of coronary artery stent, initial encounter (principal); I25.110 Atherosclerotic heart disease of native coronary artery with unstable angina pectoris; Z98.61 Coronary angioplasty status; G44.40 Drug-induced headache, not elsewhere classified, not intractable; I50.31 Acute diastolic (congestive) heart failure; E87.1 Hypo-osmolality and hyponatremia; E87.2 Acidosis; E66.9 Obesity, unspecified; J44.9 Chronic obstructive pulmonary disease, unspecified; R16.0 Hepatomegaly, not elsewhere classified; E66.01 Morbid (severe) obesity due to excess calories; Z68.36 Body mass index [BMI] 36.0-36.9, adult; I10 Essential (primary) hypertension; G47.33 Obstructive sleep apnea (adult) (pediatric); E78.5 Hyperlipidemia, unspecified; K21.9 Gastro-esophageal reflux disease without esophagitis; F32.9 Major depressive disorder, single episode, unspecified; N28.9 Disorder of kidney and ureter, unspecified; D64.9 Anemia, unspecified; H40.9 Unspecified glaucoma
CPT/HCPCS: 71010; 80048; 80048 91; 80053; 83735; 83880; 84484; 85027; 85347; 85610; 85730; 93005; 94640; 94640 76; 94660; 99202; 99281; 99285; C1769; C1887; C1894; J1644; J1940; J2250; J2270; J2405; J3010; J7040

== ENCOUNTER 2016-09-20 14:03 | Observation (INO) | payer OTHER ==
[~2016-09-20] VITALS: Ht 177.8 cm; Wt 115.0 kg
[~2016-09-20 14:03] MED LIST changes: +HYDRALAZINE HCL25 MG PO; +IMDUR30 MG PO; +RANEXA500 MG PO
[2016-09-20 14:41] LABS: EOSINOPHIL COUNT 0.1 K/uL (0-0.3); HEMATOCRIT 36.3 % (38.0-50.0); IMMATURE GRANULOCYTE (%) 1.2 % (0.0-0.7); IMMATURE GRANULOCYTE COUNT 0.1 K/uL; INSTRUMENT ABS NEUTROPHIL CT 5.3 K/uL; MCH 30.3 PG (29.0-34.0); MCHC 34.7 G/DL (30.0-36.0); MCV 87.3 FL (86-99); MEAN PLAT.VOLUME 9.1 uM^3 (9.0-12.4); MONOCYTE (%) 7.6 % (3-12); MONOCYTE COUNT 0.5 K/uL (0-0.8); NEUTROPHIL (%) 76.2 % (45-76); NEUTROPHIL COUNT 5.3 K/uL (1.8-6.4); PLATELET COUNT 235 K/uL (156-360); RBC DIS.WIDTH-CV 13.9 % (11.8-14.6); RBC DIS.WIDTH-SD 43.9 % (39-53); RED BLOOD COUNT 4.16 M/uL (4.00-5.50)
[2016-09-20 14:51] LABS: CHLORIDE 99 mEq/L (99-109); POTASSIUM 3.9 mEq/L (3.7-5.4); SODIUM 128 mEq/L (136-147)
[2016-09-20 14:53] LABS: GLUCOSE 94 mg/dL (70-99)
[2016-09-20 14:54] LABS: ANION GAP 9 MEQ/L (2-14)
[2016-09-20 14:55] LABS: TOTAL BILIRUBIN 1.1 mg/dL (0.0-1.0)
[2016-09-20 14:56] LABS: ALKALINE PHOSPHATASE 67 IU/L (3-129)
[2016-09-20 14:57] LABS: GFR ESTIMATE (CALCULATED) 58 mL/min/
[2016-09-20 14:58] LABS: UREA NITROGEN (BUN) 14 mg/dL (9-23)
[2016-09-20 15:02] LABS: TROP-I INTERPRETATION NEGATIVE; TROPONIN-I < 0.01 ng/mL (0.0-0.30)
[2016-09-20 18:05] LABS: ADD MIUA? NO; BILIRUBIN NEGATIVE; BLOOD NEGATIVE; COLOR YELLOW ((YELLOW)); GLUCOSE (STRIP) NEGATIVE; KETONES NEGATIVE; LEUKOCYTES NEGATIVE; NITRITE NEGATIVE; PROTEIN (STRIP) NEGATIVE; SPECIFIC GRAVITY 1.005 (1.000-1.030); UCUL ADDED? NO; UROBILINOGEN 0.2 MG/DL (0.2-1.0)
[2016-09-20] MEDS ORDERED: APRESOLINE25 MG PO (18:19)
[2016-09-20] MEDS ORDERED: K-DUR20 MEQ PO (18:25)
[2016-09-20 21:39] LABS: D-DIMER ELISA 0.74 mg/L FEU (< 0.57)
[2016-09-20 21:43] VITALS: BP 175/73
[2016-09-20 23:47] LABS: CHLORIDE 105 mEq/L (99-109); SODIUM 134 mEq/L (136-147)
[2016-09-20 23:48] LABS: GLUCOSE 103 mg/dL (70-99)
[2016-09-20 23:50] LABS: ANION GAP 8 MEQ/L (2-14)
[2016-09-20 23:51] VITALS: BP 112/51
[2016-09-20 23:52] LABS: GFR ESTIMATE (CALCULATED) > 59 mL/min/
[2016-09-20 23:53] LABS: UREA NITROGEN (BUN) 13 mg/dL (9-23)
[2016-09-21 04:27] VITALS: BP 143/66
[2016-09-21 07:03] LABS: EOSINOPHIL (%) 2.5 % (0-5); EOSINOPHIL COUNT 0.1 K/uL (0-0.3); HEMATOCRIT 34.1 % (38.0-50.0); IMMATURE GRANULOCYTE (%) 1.1 % (0.0-0.7); IMMATURE GRANULOCYTE COUNT 0.1 K/uL; INSTRUMENT ABS NEUTROPHIL CT 3.8 K/uL; LYMPHOCYTE COUNT 1.1 K/uL (1.0-2.8); MCH 30.9 PG (29.0-34.0); MCHC 34.9 G/DL (30.0-36.0); MCV 88.6 FL (86-99); MEAN PLAT.VOLUME 9.9 uM^3 (9.0-12.4); MONOCYTE (%) 8.8 % (3-12); MONOCYTE COUNT 0.5 K/uL (0-0.8); NEUTROPHIL (%) 67.9 % (45-76); NEUTROPHIL COUNT 3.8 K/uL (1.8-6.4); PLATELET COUNT 189 K/uL (156-360); RBC DIS.WIDTH-CV 14.1 % (11.8-14.6); RBC DIS.WIDTH-SD 45.2 % (39-53); RED BLOOD COUNT 3.85 M/uL (4.00-5.50); WHITE BLOOD COUNT 5.6 K/uL (4.1-10.2)
[2016-09-21 07:19] LABS: ALKALINE PHOSPHATASE 65 IU/L (3-129); ANION GAP 10 MEQ/L (2-14); CHLORIDE 108 MEQ/L (99-109); DIRECT BILIRUBIN 0.1 mg/dL (0.0-0.3); GFR ESTIMATE (CALCULATED) > 59 mL/min/; GLUCOSE 118 mg/dL (70-99); SAMPLE HEMOLYSIS CHECK 2; SAMPLE ICTERIC CHECK 0; SAMPLE LIPEMIA CHECK 0; SODIUM 135 MEQ/L (136-147); TOTAL BILIRUBIN 0.7 MG/DL (0.0-1.0); UREA NITROGEN (BUN) 12 mg/dL (9-23)
[2016-09-21 07:25] LABS: POTASSIUM ND MEQ/L (3.7-5.4)
[2016-09-21 09:34] VITALS: BP 163/67
[2016-09-21 10:31] LABS: NO-CHARGE AST (GOT) 13 IU/L (15-37)
[2016-09-21 10:43] LABS: POTASSIUM 4.2 MEQ/L (3.7-5.4)
[2016-09-21] MEDS ORDERED: MIRALAX17 GM PO (11:14)
[2016-09-21 11:41] VITALS: BP 159/67
== END 2016-09-21 15:11 | disposition home or self-care (01) ==
LOC: EME 14:03 → EDOF 20:15 → 5WEST 20:15 → EDOF 20:15 → 5WEST 21:35
PROVIDERS: Emergency Medicine; Hospitalist; Internal Medicine
DX: I95.1 Orthostatic hypotension (principal); E87.1 Hypo-osmolality and hyponatremia; E87.6 Hypokalemia; F41.9 Anxiety disorder, unspecified; J45.909 Unspecified asthma, uncomplicated; F32.9 Major depressive disorder, single episode, unspecified; J44.9 Chronic obstructive pulmonary disease, unspecified; E78.5 Hyperlipidemia, unspecified; I10 Essential (primary) hypertension; K21.9 Gastro-esophageal reflux disease without esophagitis; Z87.891 Personal history of nicotine dependence; Z88.0 Allergy status to penicillin; I25.10 Atherosclerotic heart disease of native coronary artery without angina pectoris; G47.30 Sleep apnea, unspecified; E66.01 Morbid (severe) obesity due to excess calories; Z68.36 Body mass index [BMI] 36.0-36.9, adult
CPT/HCPCS: 71020; 78582; 80048; 80048 91; 80053; 80076; 81003; 82436; 83930; 83935; 84133; 84300; 84484; 84550; 84999; 85025; 85379; 93005; 94640; 99202; 99281; 99285; A9540; A9567; G0378; J1650; J7030

== ENCOUNTER 2017-11-10 05:53 | Inpatient (IN) | payer OTHER ==
[~2017-11-10] VITALS: Ht 177.8 cm; Wt 111.0 kg
[~2017-11-10 05:53] MED LIST changes: +APRESOLINE25 MG PO; +MIRALAX17 GM PO
[2017-11-10 06:29] LABS: HEMATOCRIT 39.4 % (38.0-50.0); HEMOGLOBIN 14.4 G/DL (12.5-16.6); MCH 29.9 PG (29.0-34.0); MCHC 36.5 G/DL (30.0-36.0); MCV 81.9 FL (86-99); PLATELET COUNT 200 K/uL (156-360); RBC DIS.WIDTH-CV 13.1 % (11.8-14.6); RBC DIS.WIDTH-SD 39.3 % (39-53); RED BLOOD COUNT 4.81 M/uL (4.00-5.50); WHITE BLOOD COUNT 8.5 K/uL (4.1-10.2)
[2017-11-10 06:43] LABS: CHLORIDE 100 mEq/L (99-109); POTASSIUM 4.1 mEq/L (3.7-5.4); SODIUM 131 mEq/L (136-147)
[2017-11-10 06:44] LABS: GLUCOSE 123 mg/dL (70-99)
[2017-11-10 06:48] LABS: CREATININE 1.4 mg/dL (0.6-1.3); GFR ESTIMATE (CALCULATED) 53 mL/min/ (58.99-99999)
[2017-11-10 06:49] LABS: UREA NITROGEN (BUN) 21 mg/dL (9-23)
[2017-11-10 06:57] LABS: TROP-I INTERPRETATION NEGATIVE; TROPONIN-I < 0.01 ng/mL (0.0-0.30)
[2017-11-10 08:28] LABS: APPEARANCE CLEAR ((CLEAR)); BILIRUBIN NEGATIVE; BLOOD NEGATIVE; COLOR YELLOW ((YELLOW)); GLUCOSE (STRIP) NEGATIVE; KETONES NEGATIVE; LEUKOCYTES NEGATIVE; NITRITE NEGATIVE; PROTEIN (STRIP) NEGATIVE; SPECIFIC GRAVITY 1.011 (1.000-1.030); UCUL ADDED? NO; UROBILINOGEN 0.2 MG/DL (0.2-1.0)
[2017-11-10] MEDS ORDERED: LOPRESSOR50 MG PO (08:54)
[2017-11-10 08:55] LABS: INTER. NORMALIZED RATIO 1.1
[2017-11-10 08:58] LABS: PTT 28.8 SEC (25-37)
[2017-11-10] MEDS ORDERED: FLOMAX0.4 MG PO (08:58)
[2017-11-10] MEDS ORDERED: ADVAIR HFA120 INHALA IH (08:59)
[2017-11-10] MEDS ORDERED: VENTOLIN HFA18 GM IH (09:00)
[2017-11-10] MEDS ORDERED: LIPITOR40 MG PO (09:01)
[2017-11-10] MEDS ORDERED: ADVIL200 MG PO (09:02)
[2017-11-10] MEDS ORDERED: TYLENOL325 M2 PO (09:03)
[2017-11-10] MEDS ORDERED: FLONASE16 G1 BOTH NARES (09:03)
[2017-11-10 10:27] VITALS: BP 194/79
[2017-11-10 13:02] VITALS: BP 139/63
[2017-11-10 17:48] VITALS: BP 138/63
[2017-11-10 19:50] VITALS: BP 146/67
[2017-11-10 23:35] VITALS: BP 140/60
[2017-11-11 04:00] VITALS: BP 130/60
[2017-11-11 05:52] LABS: HEMATOCRIT 33.3 % (38.0-50.0); MCH 28.9 PG (29.0-34.0); MCHC 34.8 G/DL (30.0-36.0); MCV 82.8 FL (86-99); PLATELET COUNT 225 K/uL (156-360); RBC DIS.WIDTH-CV 13.2 % (11.8-14.6); RBC DIS.WIDTH-SD 40.1 % (39-53); RED BLOOD COUNT 4.02 M/uL (4.00-5.50); WHITE BLOOD COUNT 9.3 K/uL (4.1-10.2)
[2017-11-11 05:54] LABS: HEMOGLOBIN 11.6 G/DL (12.5-16.6)
[2017-11-11 06:15] LABS: CHLORIDE 97 MEQ/L (99-109); GFR ESTIMATE (CALCULATED) > 59 mL/min/ (58.99-99999); GLUCOSE 125 mg/dL (70-99); POTASSIUM 4.1 MEQ/L (3.7-5.4); SODIUM 128 MEQ/L (136-147); UREA NITROGEN (BUN) 12 mg/dL (9-23)
[2017-11-11 08:13] VITALS: BP 122/59
[2017-11-11 12:27] VITALS: BP 142/65
[2017-11-11 15:30] VITALS: BP 146/67
[2017-11-11 19:31] VITALS: BP 143/65
[2017-11-12 03:53] VITALS: BP 158/81
[2017-11-12 06:31] LABS: BASOPHIL (%) 0.5 % (0-1); BASOPHIL COUNT 0.1 K/uL (0-0.1); EOSINOPHIL (%) 2.9 % (0-5); EOSINOPHIL COUNT 0.3 K/uL (0-0.3); HEMATOCRIT 31.6 % (38.0-50.0); IMMATURE GRANULOCYTE (%) 1.3 % (0.0-0.7); LYMPHOCYTE (%) 14.7 % (15-42); LYMPHOCYTE COUNT 1.5 K/uL (1.0-2.8); MCH 29.1 PG (29.0-34.0); MCHC 34.8 G/DL (30.0-36.0); MCV 83.6 FL (86-99); MONOCYTE (%) 9.4 % (3-12); NEUTROPHIL (%) 71.2 % (45-76); NEUTROPHIL COUNT 7.2 K/uL (1.8-6.4); PLATELET COUNT 219 K/uL (156-360); RBC DIS.WIDTH-CV 13.2 % (11.8-14.6); RBC DIS.WIDTH-SD 40.3 % (39-53); RED BLOOD COUNT 3.78 M/uL (4.00-5.50); WHITE BLOOD COUNT 10.2 K/uL (4.1-10.2)
[2017-11-12 06:52] LABS: CHLORIDE 97 MEQ/L (99-109); GFR ESTIMATE (CALCULATED) > 59 mL/min/ (58.99-99999); GLUCOSE 112 mg/dL (70-99); SODIUM 132 MEQ/L (136-147); UREA NITROGEN (BUN) 11 mg/dL (9-23)
[2017-11-12 08:21] VITALS: BP 160/70
[2017-11-12 11:56] VITALS: BP 153/62
[2017-11-12 17:36] VITALS: BP 152/81
[2017-11-12 20:48] VITALS: BP 166/70
[2017-11-12 23:40] VITALS: BP 148/65
[2017-11-13 16:52] VITALS: BP 142/62
[2017-11-13 20:00] VITALS: BP 163/72
[2017-11-14 00:05] VITALS: BP 161/69
[2017-11-14 01:00] VITALS: BP 145/65
[2017-11-14 07:35] LABS: BASOPHIL (%) 0.5 % (0-1); EOSINOPHIL (%) 4.4 % (0-5); EOSINOPHIL COUNT 0.3 K/uL (0-0.3); HEMOGLOBIN 10.5 G/DL (12.5-16.6); LYMPHOCYTE (%) 21.7 % (15-42); LYMPHOCYTE COUNT 1.7 K/uL (1.0-2.8); MCHC 33.9 G/DL (30.0-36.0); MCV 85.6 FL (86-99); MONOCYTE (%) 8.9 % (3-12); MONOCYTE COUNT 0.7 K/uL (0-0.8); NEUTROPHIL (%) 62.5 % (45-76); NEUTROPHIL COUNT 4.8 K/uL (1.8-6.4); PLATELET COUNT 244 K/uL (156-360); RBC DIS.WIDTH-CV 13.4 % (11.8-14.6); RBC DIS.WIDTH-SD 41.9 % (39-53); RED BLOOD COUNT 3.62 M/uL (4.00-5.50); WHITE BLOOD COUNT 7.7 K/uL (4.1-10.2)
[2017-11-14 07:52] LABS: CHLORIDE 96 MEQ/L (99-109); CREATININE 0.9 MG/DL (0.6-1.3); GFR ESTIMATE (CALCULATED) > 59 mL/min/ (58.99-99999); GLUCOSE 103 mg/dL (70-99); POTASSIUM 4.4 MEQ/L (3.7-5.4); SODIUM 134 MEQ/L (136-147); UREA NITROGEN (BUN) 14 mg/dL (9-23)
[2017-11-14 07:58] VITALS: BP 144/63
[2017-11-14] MEDS ORDERED: TRAMADOL HCL50 MG PO (12:10)
[2017-11-14] MEDS ORDERED: OXYCODONE HCL5 MG PO (12:10)
== END 2017-11-14 14:50 | DRG 481 ==
LOC: EME → EDBD 05:53 → EME 05:53 → 3EAST 08:48 → EDOF 08:48 → ENRESERV 08:49 → 3EAST 10:14
PROVIDERS: Emergency Medicine; Internal Medicine; Physician Assistant Medical; Student in an Organized Health Care Education/Training Program
PROC: 0QS734Z Reposition Left Upper Femur with Internal Fixation Device, Percutaneous Approach (ICD-10-PCS; principal; 2017-11-10)
DX: S72.23XA Displaced subtrochanteric fracture of unspecified femur, initial encounter for closed fracture (principal); N17.9 Acute kidney failure, unspecified; N39.0 Urinary tract infection, site not specified; I25.10 Atherosclerotic heart disease of native coronary artery without angina pectoris; E87.1 Hypo-osmolality and hyponatremia; I12.9 Hypertensive chronic kidney disease with stage 1 through stage 4 chronic kidney disease, or unspecified chronic kidney disease; N18.3 Chronic kidney disease, stage 3 (moderate); N40.0 Benign prostatic hyperplasia without lower urinary tract symptoms; J44.9 Chronic obstructive pulmonary disease, unspecified; E78.5 Hyperlipidemia, unspecified; K21.9 Gastro-esophageal reflux disease without esophagitis; W18.30XA Fall on same level, unspecified, initial encounter; Z79.82 Long term (current) use of aspirin; Z87.891 Personal history of nicotine dependence; Z95.5 Presence of coronary angioplasty implant and graft
CPT/HCPCS: 71045; 73502; 76000; 80048; 81003; 84484; 85025; 85027; 85610; 85730; 93005; 94660; 94799; 97530 GP; 99281; 99285; C1713; J0690; J1644; J1650; J2250; J2370; J2405; J3010; J7030; S0020